=== PATIENT | male | born 1945 | race Caucasian/White ===

== ENCOUNTER 2016-09-17 10:10 | Emergency (ER) | payer MEDICARE, OTHER ==
[~2016-09-17] VITALS: Ht 195.6 cm; Wt 102.1 kg
[~2016-09-17 10:10] MED LIST: BISO1TAB3 PO; BISO1TAB6 PO; CPR500T PO; HYDR-229 PO; HYDR-3874 PO; HYDR-91 PO; IBP200T PO; MULT-963 PO; NITR100C3 PO; OMEG-12 PO; SAWP1CAP PO; VITA1CAP59 PO; VITAMINES PO
--- OUTSIDE RECORDS SUMMARY | 2016-09-17 10:14 | XMS REPORT | Continuity of Care Document ---
Author Author [facility] Organization [facility] Address Unknown Phone Unavailable Allergies Active Description Code Type Severity Reaction Onset Reported/Identified Relationship to Patient Clinical Status Yes No Known Drug Allergies [id number] Drug Allergy Unknown N/ A 10/04/2010 Medications Problems Date Dx Coded Attending Type Code Diagnosis Diagnosed By 10/04/2010 Ot 211.3 BENIGN NEOPLASM LG BOWEL 10/04/2010 Ot 562.10 DIVERTICULOSIS COLON (W/O MENT OF HEMORR 10/04/2010 Ot 600.00 HYPERTROPHY (BENIGN) OF PROSTATE W/O URI 10/04/2010 Ot V76.51 SCREEN MAL NEOP-COLON 09/19/2011 Ot 211.3 BENIGN NEOPLASM LG BOWEL 09/19/2011 Ot 562.10 DIVERTICULOSIS COLON (W/O MENT OF HEMORR 09/19/2011 Ot 600.00 HYPERTROPHY (BENIGN) OF PROSTATE W/O URI 04/08/2012 Ot 592.1 CALCULUS OF URETER 04/08/2012 Ot 789.03 ABDOMINAL PAIN, RIGHT LOWER QUADRANT 04/15/2012 Ot 592.1 CALCULUS OF URETER 10/13/2014 SEDRICK GRIDER MD Ot 211.3 BENIGN NEOPLASM LG BOWEL 10/13/2014 SEDRICK GRIDER MD Ot 455.0 INT HEMORRHOID W/O COMPL 10/13/2014 SEDRICK GRIDER MD Ot 562.10 DIVERTICULOSIS COLON (W/O MENT OF HEMORR 10/13/2014 SEDRICK GRIDER MD Ot 600.00 HYPERTROPHY (BENIGN) OF PROSTATE W/O URI 10/13/2014 SEDRICK GRIDER MD Ot V76.51 SCREEN MAL NEOP-COLON 05/04/2015 Ot V72.84 05/04/2015 Ot 592.1 05/04/2015 Ot 592.1 05/04/2015 Ot V72.81 05/04/2015 Ot 592.1 05/04/2015 Ot V67.09 05/04/2015 Ot 592.9 05/04/2015 SEDRICK GRIDER MD Ot V12.72 05/04/2015 SEDRICK GRIDER MD Ot V72.84 05/04/2015 SEDRICK GRIDER MD Ot V76.51 05/21/2015 RADHA MUÑOZ DO Ot I65.23 03/11/2016 JEAN-PIERRE ARMENDARIZ MD Ot S43.011A ANTERIOR SUBLUXATION OF RIGHT HUMERUS, I 03/11/2016 JEAN-PIERRE ARMENDARIZ MD Ot S49.91XA UNSP INJURY OF RIGHT SHOULDER AND UPPER 03/11/2016 KALA HOFFMANN, JEAN-PIERRE Arias Ot W00.0XXA FALL ON SAME LEVEL DUE TO ICE AND SNOW, 03/11/2016 JEAN-PIERRE ARMENDARIZ MD Ot Y99.8 OTHER EXTERNAL CAUSE STATUS 03/11/2016 Ot V72.84 EXAM PRE-OPERATIVE NOS 03/11/2016 Ot 592.1 CALCULUS OF URETER 03/11/2016 Ot 592.1 CALCULUS OF URETER 03/11/2016 Ot V72.81 [id number] CARDIOVASCULAR 03/11/2016 Ot 592.1 CALCULUS OF URETER 03/11/2016 Ot V67.09 SURGERY FOLLOW-UP, OTHER SURGERY 03/11/2016 Ot 592.9 URINARY CALCULUS NOS 03/11/2016 SEDRICK GRIDER MD Ot V12.72 PERSONAL HISTORY OF COLONIC POLYPS 03/11/2016 SEDRICK GRIDER MD Ot V72.84 EXAM PRE-OPERATIVE NOS 03/11/2016 SEDRICK GRIDER MD Ot V76.51 SCREEN MAL NEOP-COLON 03/11/2016 RADHA MUÑOZ DO S Ot I65.23 OCCLUSION AND STENOSIS OF BILATERAL [place]MAN 03/11/2016 Ot V72.84 EXAM PRE-OPERATIVE NOS 03/11/2016 Ot 592.1 CALCULUS OF URETER 03/11/2016 Ot 592.1 CALCULUS OF URETER 03/11/2016 Ot V72.81 [id number] CARDIOVASCULAR 03/11/2016 Ot 592.1 CALCULUS OF URETER 03/11/2016 Ot V67.09 SURGERY FOLLOW-UP, OTHER SURGERY 03/11/2016 Ot 592.9 URINARY CALCULUS NOS 03/11/2016 SEDRICK GRIDER MD Ot V12.72 PERSONAL HISTORY OF COLONIC POLYPS 03/11/2016 SEDRICK GRIDER MD Ot V72.84 EXAM PRE-OPERATIVE NOS 03/11/2016 SEDRICK GRIDER MD Ot V76.51 SCREEN MAL NEOP-COLON 03/11/2016 RADHA MUÑOZ DO Ot I65.23 OCCLUSION AND STENOSIS OF BILATERAL [place] 03/12/2016 JEAN-PIERRE ARMENDARIZ MD Ot S43.011A ANTERIOR SUBLUXATION OF RIGHT HUMERUS, I 03/12/2016 JEAN-PIERRE ARMENDARIZ MD Ot S49.91XA UNSP INJURY OF RIGHT SHOULDER AND UPPER 03/12/2016 JEAN-PIERRE ARMENDARIZ MD Ot W00.0XXA FALL ON SAME LEVEL DUE TO ICE AND SNOW, 03/12/2016 JEAN-PIERRE ARMENDARIZ MD Ot Y99.8 OTHER EXTERNAL CAUSE STATUS 03/18/2016 Ot V72.84 EXAM PRE-OPERATIVE NOS 03/18/2016 Ot 592.1 CALCULUS OF URETER 03/18/2016 Ot 592.1 CALCULUS OF URETER 03/18/2016 Ot V72.81 [id number] CARDIOVASCULAR 03/18/2016 Ot 592.1 CALCULUS OF URETER 03/18/2016 Ot V67.09 SURGERY FOLLOW-UP, OTHER SURGERY 03/18/2016 Ot 592.9 URINARY CALCULUS NOS 03/18/2016 MARNI HOFFMANN, SEDRICK Bullard Ot V12.72 PERSONAL HISTORY OF COLONIC POLYPS 03/18/2016 MARNI HOFFMANN, SEDRICK Bullard Ot V72.84 EXAM PRE-OPERATIVE NOS 03/18/2016 SEDRICK GRIDER MD Ot V76.51 SCREEN MAL NEOP-COLON 03/18/2016 RADHA MUÑOZ DO Ot I65.23 OCCLUSION AND STENOSIS OF BILATERAL [place] 03/19/2016 SANDRO YEH MD, Ot M75.121 COMPLETE ROTATR-CUFF TEAR/RUPTR OF R MARLY 04/15/2016 SANDRO YEH MD, Ot M75.121 COMPLETE ROTATR-CUFF TEAR/RUPTR OF R MARLY 04/18/2016 SANDRO YEH MD, Ot M75.121 COMPLETE ROTATR-CUFF TEAR/RUPTR OF R MARLY Procedures Results Encounters ACCT No. Visit Date/Time Discharge Status Pt. Type Provider Facility Loc./Unit Complaint [id number] 03/11/2016 19:33:00 2015 21:20:00 DIS Emergency JEAN-PIERRE ARMENDARIZ MD [facility] ER R SHOULDER INJ [id number] 10/13/2014 07:07:00 2014 09:20:00 DIS Outpatient SEDRICK GRIDER MD [facility] SDC SCREENING; HX COLON POLYPS [id number] 10/11/2014 07:12:00 2014 23:59:59 CLS Outpatient SEDRICK GRIDER MD [facility] PREOP SCREENING;HX COLON POLYPS [id number] 03/18/2016 07:58:00 ACT Outpatient SANDRO YEH MD [facility] RAD COMPLETE RTC TEAR [id number] 05/04/2015 14:39:00 ACT Outpatient RADHA MUÑOZ DO [facility] RAD NEUROLOGICAL MIGRANES, VISION CHANGES [id number] 05/05/2012 17:02:00 Document Registration [id number] 05/04/2012 11:15:00 Document Registration [id number] 04/15/2012 08:58:00 Document Registration [id number] 04/13/2012 13:47:00 Document Registration [id number] 04/13/2012 11:27:00 Document Registration [id number] 04/08/2012 05:13:00 Document Registration [id number] 09/19/2011 07:05:00 Document Registration [id number] 09/18/2011 07:19:00 Document Registration [id number] 10/04/2010 07:04:00 Document Registration
[2016-09-17] MEDS ORDERED: NS IV 1000 ML 1,000 ML IV ONE (10:36)
[2016-09-17] MEDS ORDERED: KETOROLAC 30 MG/ML VIAL IVP STA (10:36)
[2016-09-17] MEDS ORDERED: fentaNYL INJECTION 100 MCG/2 ML AMP IVP STA ×2 (10:36→11:11)
[2016-09-17] MEDS ORDERED: ONDANSETRON 4 MG/2 ML (SDV) Z0FRAN IVP ONE (10:45)
[2016-09-17 10:54] LABS: BASOPHILS % (AUTO) 0 % (0-10); EOSINOPHILS # (AUTO) 0.1 10^3/uL (0.0-0.3); EOSINOPHILS % (AUTO) 1 % (0-10); LYMPHOCYTES # (AUTO) 1.8 X 10^3 (1.0-4.0); LYMPHOCYTES % (AUTO) 19 % (12-44); MEAN CORPUSCULAR HEMOGLOBIN 32 PG (25-34); MEAN CORPUSCULAR HGB CONC 34 G/DL (32-36); MEAN CORPUSCULAR VOLUME 95 FL (80-99); MEAN PLATELET VOLUME 10.5 FL (7.4-10.4); MONOCYTES # (AUTO) 0.6 X 10^3 (0.0-1.0); MONOCYTES % (AUTO) 6 % (0-12); NEUTROPHILS # (AUTO) 6.9 X 10^3 (1.8-7.8); NEUTROPHILS % (AUTO) 74 % (42-75); PLATELET COUNT 179 10^3/uL (130-400); RED BLOOD COUNT 4.79 10^6/uL (4.35-5.85); RED CELL DISTRIBUTION WIDTH 12.6 % (10.0-14.5); WHITE BLOOD COUNT 9.4 10^3/uL (4.3-11.0)
--- NOTE | 2016-09-17 10:54 | ED GU-Male ---
General Chief Complaint: Abdominal/GI Problems Stated Complaint: LEFT FLANK PAIN Nursing Triage Note: AMB TO ROOM C/O OF L FLANK PAIN PMH OF KIDNEY STONES Source: patient Exam Limitations: no limitations (NICKOLAS MARQUEZ MD) History of Present Illness Time seen by provider: 10:33 Initial Comments Here with report of left flank pain that woke him up at 6 a.m. this morning. States that it was abdominal discomfort on the left side and then went to the left flank. Denies fever or chills. May have had a kidney stone several years ago with similar but not as bad pain. Timing/Duration: this morning Severity/Quality: moderate, severe Location: left flank Radiation: none Activities at Onset: sleep Prior Genitourinary Problems: similar symptoms Associated Symptoms: No fever/chills, nausea/vomiting, No urinary frequency ( NICKOLAS MARQUEZ MD) Allergies and Home Medications Allergies Coded Allergies: No Known Drug Allergies (Unverified , 10/04/10) Home Medications Bisoprol/Hydrochlorothiazide 1 Tab Tablet, 1 TAB PO DAILY, (Reported) Ciprofloxacin HCl 500 Mg Tablet, 500 MG PO DAILY, #10 Ref 0 Prescribed by: XIOMARA HACKETT on 09/17/16 1232 Hydrocodone/Acetaminophen 1 Each Tablet, 1-2 EACH PO Q4H PRN for PAIN, #15 Prescribed by: JEAN-PIERRE ARMENDARIZ on 03/11/16 2019 Multivitamin 1 Each Tablet, 1 EACH PO DAILY, (Reported) Ondansetron 8 Mg Tab.rapdis, 8 MG PO Q6H PRN for NAUSEA/VOMITING-1ST LINE, #10 Ref 0 Prescribed by: XIOMARA HACKETT on 09/17/16 1232 Oxycodone HCl/Acetaminophen 1 Each Tablet, 1 EACH PO Q4H PRN for pain, #20 Ref 0 Prescribed by: XIOMARA HACKETT on 09/17/16 1232 Phenazopyridine HCl 200 Mg Tablet, 1 TAB PO Q8H PRN for pain, #30 Ref 0 Prescribed by: XIOMARA HACKETT on 09/17/16 1232 Sawpalmtofrtxt/Zinc Picolinate 1 Each Capsule, 1 EACH PO BID, (Reported) Tamsulosin HCl 0.4 Mg Cap, 0.4 MG PO DAILY, #10 Ref 0 Prescribed by: XIOMARA HACKETT on 09/17/16 1232 Vitamin B Complex 1 Cap Capsule, 1 CAP PO DAILY, (Reported) Constitutional: see HPI, No chills, No fever, No weakness EENTM: no symptoms reported Respiratory: no symptoms reported Cardiovascular: no symptoms reported Gastrointestinal: see HPI, nausea, No vomiting Genitourinary: see HPI, flank pain, pain Musculoskeletal: no symptoms reported (NICKOLAS MARQUEZ MD) All Other Systemes Reviewed Negative Unless Noted: Yes (NICKOLAS MARQUEZ MD) Past Vrlwrod-Tnbjgp-Vtnrik Hx Patient Social History Alcohol Use: Occasionally Uses Recreational Drug Use: No Smoking Status: Never a Smoker Recent Foreign Travel: No Contact w/Someone Who Travel: No Recent Infectious Disease Expo: No Recent Hopitalizations: No (NICKOLAS MARQUEZ MD) Immunizations Up To Date Tetanus Booster (TDap): Less than 5yrs (NICKOLAS MARQUEZ MD) Surgeries HX Surgeries: Yes (ROTATOR CUFF, BROKEN ARM, ESWL) (NICKOLAS MARQUEZ MD) Respiratory Hx Respiratory Disorders: No (NICKOLAS MARQUEZ MD) Cardiovascular Hx Cardiac Disorders: Yes Cardiac Disorders: Hypertension (NICKOLAS MARQUEZ MD) Neurological Hx Neurological Disorders: No (NICKOLAS MARQUEZ MD) Reproductive System Hx Reproductive Disorders: No Sexually Transmitted Disease: No HIV/AIDS: No (NICKOLAS MARQUEZ MD) Genitourinary Hx Genitourinary Disorders: Yes (RT URETERAL STONE) (NICKOLAS MARQUEZ MD) Gastrointestinal Hx Gastrointestinal Disorders: No (NICKOLAS MARQUEZ MD) Musculoskeletal Hx Musculoskeletal Disorders: No (NICKOLAS MARQUEZ MD) Endocrine Hx Endocrine Disorders: No (NICKOLAS MARQUEZ MD) HEENT HX ENT Disorders: No (NICKOLAS MARQUEZ MD) Cancer Hx Cancer: No (NICKOLAS MARQUEZ MD) Psychosocial Hx Psychiatric Problems: No (NICKOLAS MARQUEZ MD) Integumentary HX Skin/Integumentary Disorder: No (NICKOLAS MARQUEZ MD) Blood Transfusions Hx Blood Disorders: No (NICKOLAS MARQUEZ MD) Reviewed Nursing Assessment Reviewed/Agree w Nursing PMH: Yes (NICKOLAS MARQUEZ MD) Family Medical History Significant Family History: No Pertinent Family Hx (NICKOLAS MARQUEZ MD) Physical Exam Vital Signs Vital Sign - Last 12Hours 09/17/16 09/17/16 10:14 13:25 Temp 96.1 Pulse 89 Resp 18 B/P (MAP) 195/106 Pulse Ox 98 O2 Delivery Room Air (XIOMARA HACKETT) Vital Signs Capillary Refill : Less Than 3 Seconds (NICKOLAS MARQUEZ MD) General Appearance: WD/WN, no apparent distress HEENT: PERRL/EOMI, pharynx normal Neck: full range of motion, supple Cardiovascular: regular rate, rhythm, no murmur Respiratory: lungs clear, normal breath sounds Gastrointestinal: non tender, soft Back: normal inspection, no CVA tenderness, no vertebral tenderness Extremities: non-tender, normal inspection Neurologic/Psychiatric: alert, oriented x 3 Skin: normal color, warm/dry (NICKOLAS MARQUEZ MD) Patient Education: Explained Benefits Breath Sounds per Auscultation: Clear Heart Sounds per Auscultation: Regular Airway Exam: Neck Full Range of Motion, Visulation of Uvula Sedation Adminstration Time: 2023 (NICKOLAS MARQUEZ MD) Progress/Results/Core Measures Results/Orders Lab Results Laboratory Tests Test 09/17/16 10:40 09/17/16 10:46 09/17/16 10:49 Range/Units White Blood Count 9.4 4.3-11.0 10^3/uL Red Blood Count 4.79 4.35-5.85 10^6/uL Hemoglobin 15.5 13.3-17.7 G/DL Hematocrit 45 40-54 % Mean Corpuscular Volume 95 80-99 FL Mean Corpuscular Hemoglobin 32 25-34 PG Mean Corpuscular Hemoglobin Concent 34 32-36 G/DL Red Cell Distribution Width 12.6 10.0-14.5 % Platelet Count 179 130-400 10^3/uL Mean Platelet Volume 10.5 H 7.4-10.4 FL Neutrophils (%) (Auto) 74 42-75 % Lymphocytes (%) (Auto) 19 12-44 % Monocytes (%) (Auto) 6 0-12 % Eosinophils (%) (Auto) 1 0-10 % Basophils (%) (Auto) 0 0-10 % Neutrophils # (Auto) 6.9 1.8-7.8 X 10^3 Lymphocytes # (Auto) 1.8 1.0-4.0 X 10^3 Monocytes # (Auto) 0.6 0.0-1.0 X 10^3 Eosinophils # (Auto) 0.1 0.0-0.3 10^3/uL Basophils # (Auto) 0.0 0.0-0.1 10^3/uL Sodium Level 142 135-145 MMOL/L Potassium Level 4.0 3.6-5.0 MMOL/L Chloride Level 108 H 98-107 MMOL/L Carbon Dioxide Level 21 21-32 MMOL/L Anion Gap 13 5-14 MMOL/L Blood Urea Nitrogen 20 H 7-18 MG/DL Creatinine 1.41 H 0.60-1.30 MG/DL Estimat Glomerular Filtration Rate 50 BUN/Creatinine Ratio 14 Glucose Level 129 H 70-105 MG/DL Calcium Level 9.5 8.5-10.1 MG/DL Total Bilirubin 0.4 0.1-1.0 MG/DL Aspartate Amino Transf (AST/SGOT) 39 H 5-34 U/L Alanine Aminotransferase (ALT/SGPT) 41 0-55 U/L Alkaline Phosphatase 81 40-136 U/L Total Protein 8.1 6.4-8.2 GM/DL Albumin 4.4 3.2-4.5 GM/DL Urine Color YELLOW Urine Clarity CLEAR Urine pH 6 5-9 Urine Specific [place] 1.020 1.016-1.022 Urine Protein 2+ H NEGATIVE Urine Glucose (UA) NEGATIVE NEGATIVE Urine Ketones NEGATIVE NEGATIVE Urine Nitrite NEGATIVE NEGATIVE Urine Bilirubin NEGATIVE NEGATIVE Urine Urobilinogen NORMAL NORMAL MG/DL Urine Leukocyte Esterase 1+ H NEGATIVE Urine RBC (Auto) 5+ H NEGATIVE Urine RBC 50-100 H /HPF Urine WBC 2-5 /HPF Urine Squamous Epithelial Cells 2-5 /HPF Urine Crystals NONE /LPF Urine Bacteria TRACE /HPF Urine Casts NONE /LPF Urine Mucus SMALL H /LPF Urine Culture Indicated NO (XIOMARA HACKETT) My Orders Orders - XIOMARA HACKETT Abdomen/Kub 1view (09/17/16 12:44) (XIOMARA HACKETT) Medications Given in ED Current Medications Medications Dose Ordered Sig/Antonio Route Start Time Stop Time Status Last Admin Dose Admin Ondansetron HCl 4 mg ONCE ONCE IVP 09/17/16 10:45 09/17/16 10:46 DC 09/17/16 10:46 4 MG Sodium Chloride 1,000 ml @ 0 mls/hr Q0M ONCE IV 09/17/16 10:36 09/17/16 10:38 DC 09/17/16 10:47 1,000 MLS/HR (XIOMARA HACKETT) Vital Signs/I&O Vital Sign - Last 12Hours 09/17/16 09/17/16 10:14 13:25 Temp 96.1 Pulse 89 80 Resp 18 18 B/P (MAP) 195/106 Pulse Ox 98 97 O2 Delivery Room Air (XIOMARA HACKETT) Blood Pressure Mean: 135 Progress Note : Progress Note Seen and evaluated. UA ordered. Blood noted. IV, labs, CT abdomen and pelvis kidney stone protocol ordered. Fentanyl 75 g IV, Toradol 30 mg IV and Zofran 4 mg IV ordered. Normal saline 1 L bolus. Monitor patient. (NICKOLAS MARQUEZ MD) Diagnostic Imaging Diagonstic Imaging: CT Plain Films/CT/US/NM/MRI: abdomen, pelvis Comments A left ureteral stone at the level of the L3-L4 disc space measures a diameter of 3.3 mm and a density of 500 Hounsfield units. It results in mild upstream hydroureteronephrosis. The appearance of collecting system dilatation is exaggerated by a superimposed chronic known parapelvic cysts. There is perinephric and periureteric edema without urinoma or other fluid collection. A nonobstructing stone within a right lower pole calyx measures 5.3 mm long axis. The previous obstructing ureteropelvic junction stone resolved in the interim. The unopacified urinary bladder was unremarkable. The air-containing appendix normal. Liver, gallbladder, spleen, adrenals and pancreas all nonacute. IMPRESSION: Left ureteral stone junction proximal and middle third 3.3 mm in diameter results in mild upstream hydroureteronephrosis with perinephric and periureteric edema. Nonobstructing right renal calculus present. Negative bladder. Chronic prostamegaly. Remaining abdominal pelvic solid and hollow viscera unremarkable. Dictated on workstation # [id number] Reviewed: Reviewed by Me (radiology report reviewed by me) Diagonstic Imaging: Xray Plain Films/CT/US/NM/MRI: abdomen Comments FINDINGS: There is a proximal left ureteric stone at the L3 level measuring 5 mm seen. There is also a 4 mm stone in the lower pole of the right kidney. Unremarkable bowel gas pattern is seen. IMPRESSION: Proximal left ureteric stone measuring 5 mm at the L3 level. There is also a 4 mm lower pole right kidney stone. Dictated on workstation # [id number] Reviewed: Reviewed by Me (radiology report reviewed by me) (XIOMARA HACKETT) Departure Communication Progress Notes Laboratory and diagnostic findings discussed with the patient. KUB obtained prior to discharge for follow-up comparison by Dr. Valencia. Plan for discharge to home. Patient reports pain is resolved at this time. All return precautions were discussed with the patient as described in the discharge instructions of this report. Patient voices understanding and agrees with the treatment plan. (XIOMARA HACKETT) Impression Impression: Primary Impression: Left nephrolithiasis Additional Impression: Hydroureteronephrosis Disposition: , SELF-CARE Condition: Improved Departure-Patient Inst. Decision time for Depature: 12:29 (XIOMARA HACKETT) Referrals: RADHA MUÑOZ DO (PCP/Family) Primary Care Physician ADOLFO VALENCIA MD Patient Instructions: Kidney Stones (DC) Add. Discharge Instructions: All discharge instructions reviewed with patient and/or family. Voiced understanding. Medications as instructed. Ibuprofen 800 mg by mouth every 8 hours as needed for pain. Strain all urines. If you are able to catch the stone, take it with you to your follow-up appointment. Drink plenty of fluids. Follow-up with Dr. Valencia as an outpatient within the next 7 days, call for appointment time today. Return to the emergency department immediately for worsened pain, visible blood in the urine, inability to urinate, fever, or any other concerns. Scripts Ondansetron (Ondansetron Odt) 8 Mg Tab.rapdis 8 MG PO Q6H Y for NAUSEA/VOMITING-1ST LINE, #10 TAB 0 Refills Prov: XIOMARA HACKETT 09/17/16 Phenazopyridine HCl (Pyridium) 200 Mg Tablet 1 TAB PO Q8H Y for pain, #30 TAB 0 Refills Prov: XIOMARA HACKETT 09/17/16 Ciprofloxacin HCl (Ciprofloxacin HCl) 500 Mg Tablet 500 MG PO DAILY, #10 TAB 0 Refills Prov: XIOMARA HACKETT 09/17/16 Tamsulosin HCl (Flomax) 0.4 Mg Cap 0.4 MG PO DAILY, #10 CAP 0 Refills Prov: XIOMARA HACKETT 09/17/16 Oxycodone HCl/Acetaminophen (Percocet 5-325 mg Tablet) 1 Each Tablet 1 EACH PO Q4H Y for pain, #20 TAB 0 Refills Prov: XIOMARA HACKETT 09/17/16 NICKOLAS MARQUEZ MD Sep 17, 2016 10:54 XIOMARA HACKETT Sep 17, 2016 12:34
[2016-09-17 10:55] LABS: BILIRUBIN,URINE NEGATIVE (NEGATIVE); KETONES,URINE NEGATIVE (NEGATIVE); LEUKOCYTE ESTERASE ,URINE 1+ (NEGATIVE); NITRITE,URINE NEGATIVE (NEGATIVE); PH,URINE 6 (5-9); PROTEIN,URINE 2+ (NEGATIVE); UROBILINOGEN,URINE NORMAL (NORMAL)
[2016-09-17 11:18] LABS: ALBUMIN 4.4 GM/DL (3.2-4.5); BILIRUBIN,TOTAL 0.4 MG/DL (0.1-1.0); CALCIUM 9.5 MG/DL (8.5-10.1); CREATININE SERUM 1.41 MG/DL (0.60-1.30); TOTAL PROTEIN 8.1 GM/DL (6.4-8.2)
--- NOTE | 2016-09-17 12:25 | Diagnostic Imaging Report ---
PROCEDURE: CT urinary tract, rule out kidney stone. TECHNIQUE: Multiple contiguous axial images were obtained through the abdomen and pelvis without the use of intravenous contrast. INDICATION: Left flank pain. A left ureteral stone at the level of the L3-L4 disc space measures a diameter of 3.3 mm and a density of 500 Hounsfield units. It results in mild upstream hydroureteronephrosis. The appearance of collecting system dilatation is exaggerated by a superimposed chronic known parapelvic cysts. There is perinephric and periureteric edema without urinoma or other fluid collection. A nonobstructing stone within a right lower pole calyx measures 5.3 mm long axis. The previous obstructing ureteropelvic junction stone resolved in the interim. The unopacified urinary bladder was unremarkable. The air-containing appendix normal. Liver, gallbladder, spleen, adrenals and pancreas all nonacute. IMPRESSION: Left ureteral stone junction proximal and middle third 3.3 mm in diameter results in mild upstream hydroureteronephrosis with perinephric and periureteric edema. Nonobstructing right renal calculus present. Negative bladder. Chronic prostamegaly. Remaining abdominal pelvic solid and hollow viscera unremarkable. Dictated by: Dictated on workstation # [id number]
[2016-09-17] MEDS ORDERED: CIPR500T4 PO (12:32)
[2016-09-17] MEDS ORDERED: OXYC-197 PO (12:32)
[2016-09-17] MEDS ORDERED: ONDA8TAB13 PO (12:32)
[2016-09-17] MEDS ORDERED: PHEN-640 PO (12:32)
[2016-09-17] MEDS ORDERED: TAMS0.4C98 PO (12:32)
[2016-09-17 13:25] VITALS: BP 171/92
--- NOTE | 2016-09-17 13:26 | Diagnostic Imaging Report ---
EXAMINATION: KUB. INDICATION: Left kidney stone. Correlation with concurrent CT scan in the same day is performed. FINDINGS: There is a proximal left ureteric stone at the L3 level measuring 5 mm seen. There is also a 4 mm stone in the lower pole of the right kidney. Unremarkable bowel gas pattern is seen. IMPRESSION: Proximal left ureteric stone measuring 5 mm at the L3 level. There is also a 4 mm lower pole right kidney stone. Dictated by: Dictated on workstation # [id number]
== END 2016-09-17 13:27 | disposition home or self-care (01) ==
LOC: EDUNIT# 10:10 → ER 10:12
DX: N13.2 Hydronephrosis with renal and ureteral calculous obstruction (principal); I10 Essential (primary) hypertension
CPT/HCPCS: 36415; 74000; 74176; 80053; 81000; 85025; 96361; 96374; 96375

== ENCOUNTER → 2017-10-02 | Outpatient (CLI) | payer MEDICARE, OTHER ==
[~2017-10-02] MED LIST changes: +CIPR500T4 PO; +HYDR-3870 PO; -HYDR-3874 PO; +ONDA8TAB13 PO; +OXYC-197 PO; +PHEN-640 PO; +TAMS0.4C98 PO
== END ==
LOC: CARD 13:46
PROVIDERS: ATTEND Family Medicine
DX: R01.1 Cardiac murmur, unspecified (principal); I10 Essential (primary) hypertension; I08.1 Rheumatic disorders of both mitral and tricuspid valves
CPT/HCPCS: 93306

== ENCOUNTER → 2017-10-12 | Outpatient (CLI) | payer MEDICARE, OTHER ==
--- NOTE | 2017-10-12 12:45 | Diagnostic Imaging Report ---
INDICATION: Pulmonary hypertension. FINDINGS: 2 views of the chest shows normal heart size and vascularity. There is no abnormal dilatation or tapering of the pulmonary arteries. The lungs are clear. There is no effusion or pneumothorax. There is no acute bony abnormality. IMPRESSION: Normal chest. Dictated by: Dictated on workstation # [id number]
== END ==
LOC: RAD 12:13
PROVIDERS: ATTEND Family Medicine
DX: I27.20 Pulmonary hypertension, unspecified (principal)
CPT/HCPCS: 71046

== ENCOUNTER 2018-10-29 05:32 | Outpatient (CLI) | payer MEDICARE, OTHER ==
[~2018-10-29] VITALS: Ht 176.5 cm; Wt 102.1 kg
[~2018-10-29 05:32] MED LIST changes: -OXYC-197 PO; +OXYC1TAB87 PO
[2018-10-29] MEDS ORDERED: VITA1TAB17 PO (14:32)
[2018-10-29] MEDS ORDERED: AMLO2.5T4 PO (14:32)
[2018-10-29] MEDS ORDERED: BISO1TAB3 PO (14:32)
[2018-10-29] MEDS ORDERED: TRAZ-222 PO (14:32)
[2018-10-29] MEDS ORDERED: NIAC250T25 PO (14:32)
[2018-10-29] MEDS ORDERED: FENO134C PO (14:32)
== END 2018-10-29 14:46 ==
LOC: PREOP 05:32
PROVIDERS: ATTEND Internal Medicine
DX: Z01.818 Encounter for other preprocedural examination (principal)

== ENCOUNTER 2018-11-05 07:15 | Day surgery (SDC) | payer MEDICARE, OTHER ==
--- NOTE | 2018-10-27 18:24 | HISTORY AND PHYSICAL ---
DATE OF SERVICE: COLONOSCOPY HISTORY AND PHYSICAL DATE OF ADMISSION: 11/05/2018. HISTORY OF PRESENT ILLNESS: The patient is a 72-year-old white male, referred by Dr. May, for surveillance colonoscopy due to past history of colon polyps. He last underwent colonoscopy four and a half years ago. He reports that he has felt well. 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 He has had no problems with abdominal pain and denies melena or bright red blood per rectum. He has had no change in bowel habit. He denies any problems with diarrhea or constipation. FAMILY HISTORY: He is not aware of any known family history for colon cancer, polyps or inflammatory bowel disease. SOCIAL HISTORY: He has no past smoking or drinking history and as noted in the HPI, retired professor in the biology department at [employer]. PAST MEDICAL HISTORY: Significant for hypertension, benign prostatic hypertrophy in the past, nephrolithiasis. He last underwent ESWL procedure for a right ureteral stone in 03/2012. PHYSICAL EXAMINATION: GENERAL: Reveals a white male who appears to be in no acute distress, appearing a little younger than his stated age. VITAL SIGNS: Blood pressure is 132/72, weight is 227 pounds, respiratory rate 16 and nonlabored, heart rate 70 and regular. HEENT: Unremarkable. Sclerae were nonicteric. No evidence for pallor. NECK: Revealed no JVD, adenopathy or bruits. CHEST: Clear to auscultation. CARDIOVASCULAR: Reveals a regular rate and rhythm without murmur, S3 or S4. ABDOMEN: Soft, supple without mass, organomegaly or tenderness. EXTREMITIES: Reveal no cyanosis, clubbing or edema. ASSESSMENT: The patient was set up for surveillance colonoscopy due to past history of colon polyps on 11/05/2018. Prep instructions were given and questions were answered. I thank you for the referral of this pleasant gentleman. Job ID: [id number] DocumentID: [id number] Dictated Date: 10/25/2018 16:53:36 Production Operator Date: 10/25/2018 18:20:30 Dictated By: SEDRICK GRIDER MD
[~2018-11-05] VITALS: Ht 176.5 cm; Wt 102.1 kg
[2018-11-05] VITALS (12 sets, daily range): BP systolic 116–182; BP diastolic 58–86
[~2018-11-05 07:15] MED LIST changes: +AMLO2.5T4 PO; +D5 LR IV SOLUTION 1,000 ML IV ONE; +FENO134C PO; +NIAC250T25 PO; +TRAZ-222 PO; +VITA1TAB17 PO
[2018-11-05] MEDS ORDERED: LIDOCAINE JELLY 2% 6 ML SYRINGE ONE (07:30)
[2018-11-05] MEDS ORDERED: MIDAZOLAM 2 MG/2 ML (VERSED) VIAL ONE (07:30)
[2018-11-05] MEDS ORDERED: fentaNYL INJECTION 100 MCG/2 ML AMP ONE (07:30)
[2018-11-05] MEDS ORDERED: D5 LR IV SOLUTION 1,000 ML IV STA (08:06)
[2018-11-05] MEDS ORDERED: fentaNYL INJECTION 100 MCG/2 ML AMP IVP ONE (08:15)
[2018-11-05] MEDS ORDERED: MIDAZOLAM 2 MG/2 ML (VERSED) VIAL IVP ONE (08:15)
[2018-11-05] MEDS ORDERED: LIDOCAINE JELLY 2% 6 ML SYRINGE MM PRN (08:15)
--- NOTE | 2018-11-05 08:58 | Pre-Op Note & Conscious Sedat ---
Pre-Operative Progress Note H&P Reviewed The H&P was reviewed, patient examined and no changes noted. Date H&P Reviewed: Nov 05, 2018 Time H&P Reviewed: 07:40 Conscious Sedation Pre-Proced ASA Score 2 For ASA 3 and 4: Consider anesthesia and medical clearance. Also, for patients with a history of failed moderate sedation consider anesthesia. Airway Lungs Heart ASA score ASA 1: a normal healthy patient ASA 2: a patient with a mild systemic disease (mid diabetes, controlled hypertension, obesity ASA 3: a patient with a severe systemic disease that limits activity (angina, COPD, prior Myocardial infarction) ASA 4: a patient with an incapacitating disease that is a constant threat to life (CHF, renal failure) ASA 5: a moribund patient not expected to survive 24 hrs. (ruptured aneurysm) ASA 6: a declared brain- patient whose organs are being harvested. For emergent operations, add the letter E after the classification Mallampati Classification Grade 2 Sedation Plan Analgesia, Amnesia, Plan communicated to team members, Discussed options with patient/fam, Discussed risks with patient/fam The patient is an appropriate candidate to undergo the planned procedure, sedation, and anesthesia. The patient immediately re-assessed prior to indication. SEDRICK GRIDER MD Nov 05, 2018 08:58
--- NOTE | 2018-11-05 14:56 | OPERATIVE REPORT ---
DATE OF SERVICE: 11/05/2018 COLONOSCOPY SUMMARY INDICATION FOR THE PROCEDURE: Occult positive blood in the stool with a history of colon polyps. DESCRIPTION OF PROCEDURE: The patient was placed in the left lateral decubitus position. Prior to undergoing colonoscopy, digital rectal evaluation was performed. Anal sphincter tone was normal. Perianal reflexes intact. Prostate is moderately enlarged, anodular and nontender to digital inspection. No other abnormalities on digital inspection of the anal canal or distal rectal vault. The colonoscope was then inserted into the rectum and under direct visualization advanced to the cecum. The cecum was identified by the identification of the ileocecal valve and cecal strap. Photographic documentation was obtained. Careful inspection was made as the colonoscope was withdrawn. The quality of prep was good. FINDINGS: There was no evidence for internal or external hemorrhoids and the rectum was unremarkable. Several small to medium-sized sigmoid diverticulum were present without evidence for diverticulitis. No other sigmoid colonic abnormalities were appreciated. The descending colon, splenic flexure, transverse colon and hepatic flexure were unremarkable. Present in the proximal ascending colon was a diminutive 5 mm sessile polyp. It was photographed and biopsied and ablated and submitted for histopathology. The cecum and the colon was unremarkable. ASSESSMENT: 1. One diminutive proximal ascending colon polyp was biopsied and ablated with no subsequent blood loss. No other evidence for neoplasia was identified. We would advocate consideration for repeat surveillance colonoscopy in 5 years as long as there are no surprises on histopathology report. 2. Moderate benign prostatic hypertrophy is present on digital evaluation of the prostate. 3. Mild diverticular disease confined to the sigmoid colon was present without evidence for diverticulitis. Job ID: [id number] DocumentID: [id number] Dictated Date: 11/05/2018 09:49:30 Reworker Date: 11/05/2018 14:55:39 Dictated By: SDERICK GRIDER MD [facility]
== END 2018-11-05 09:10 | disposition home or self-care (01) ==
LOC: ENDO 07:15
PROVIDERS: ATTEND Internal Medicine
DX: D12.2 Benign neoplasm of ascending colon (principal); K57.30 Diverticulosis of large intestine without perforation or abscess without bleeding; R19.5 Other fecal abnormalities; N40.0 Benign prostatic hyperplasia without lower urinary tract symptoms; I10 Essential (primary) hypertension; Z87.442 Personal history of urinary calculi; Z88.1 Allergy status to other antibiotic agents; Z79.899 Other long term (current) drug therapy
CPT/HCPCS: 88305

== ENCOUNTER → 2019-10-20 | Outpatient (CLI) | payer MEDICARE, OTHER ==
[~2019-10-20] MED LIST changes: -D5 LR IV SOLUTION 1,000 ML IV ONE; -TAMS0.4C98 PO; +TMSL.4C PO; -TRAZ-222 PO; +TRZ50T PO
== END ==
LOC: CARD 10:30
PROVIDERS: ATTEND Nurse Practitioner Family
DX: I34.0 Nonrheumatic mitral (valve) insufficiency (principal)
CPT/HCPCS: 93306